=== PATIENT | male | born 1960 | race Caucasian/White ===

== ENCOUNTER 2019-02-22 10:23 | Emergency (ER) | payer BC ==
[2019-02-22] MEDS ORDERED: Aspirin 81 MG Tab.Chew PO ONE (11:02)
[2019-02-22] MEDS ORDERED: Nitroglycerin 0.4 MG Tab.SL SL ONE (11:02)
[2019-02-22] MEDS ORDERED: Sodium Chloride 0.9% 10 ML Syringe FLUSH PRN (11:02)
[2019-02-22 11:18] VITALS: BP 142/104
[2019-02-22] MEDS ORDERED: Nitroglycerin 2% Oint 1 GM UD Packet TOP STA (11:25)
--- NOTE | 2019-02-22 11:36 | EDM.PDOC ---
<Red Guardado - Last Filed: 02/22/19 11:24> ED HPI GENERAL MEDICAL PROBLEM - General Chief Complaint: Chest Pain Stated Complaint: CHEST PAIN AND ARM PAIN Time Seen by Provider: 02/22/19 10:47 Source of Information: Reports: Patient History Limitations: Reports: No Limitations - History of Present Illness INITIAL COMMENTS - FREE TEXT/NARRATIVE: Logan Guardado is a 58 year old male who presents to the ED for chest pain for the last day. 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 The pain starts in his chest and eventually begins to radiate into the back of both of his arms. He states that the pain eventually subsides roughly after about 40 minutes. He describes the pain as being hit with a sledgehammer right in the chest. He was able to sleep last night but he believes it was very restless because his covers were messed up. He then again felt the same exact pain this morning after leaving his brothers when he got out of his chicken picker. He did have a lower back surgery 5 months ago and he is still on 20lb weight restrictions. He states that he has been recently starting to become more active lately. He does also have an extensive family hx of heart disease with his sister having 2 stent placements and his niece also having 2 MIs. He is currently on Losartan and Metoprolol for his BP, he states that he forgot to take one of his medications but he's not sure which one. He thinks he took both doses of his Metoprolol and forgot the Losartan. Left Chest Pain Score (Numeric/FACES): 2 - Related Data Allergies Allergy/AdvReac Type Severity Reaction Status Date / Time codeine Allergy Cannot Verified 05/10/16 13:10 Remember Home Meds: Home Meds Aspirin 81 mg PO DAILY 04/05/16 [History] Losartan [Cozaar] 100 mg PO DAILY 04/05/16 [History] Metoprolol Tartrate 50 mg PO BID 04/05/16 [History] Nabumetone 500 mg PO Q12HR PRN 04/05/16 [History] Pravastatin Sodium 40 mg PO DAILY 04/05/16 [History] Calcium Polycarbophil [Fiber Therapy] 1 tab PO DAILY 05/11/16 [History] Multivitamin [One Daily Multivitamin] 1 tab PO DAILY 05/11/16 [History] Past Medical History HEENT History: Reports: Impaired Vision Other HEENT History: wears glasses Cardiovascular History: Reports: High Cholesterol, Hypertension Other Respiratory History: Severe Snoring Gastrointestinal History: Reports: Other (See Below) Other Gastrointestinal History: blood per rectum - ^ LFT's Musculoskeletal History: Reports: Back Pain, Chronic, Fracture, Osteoarthritis Other Musculoskeletal History: lumbar spine pain, chronic neck pain Other Neuro History: Shooting pain down Rt. Leg - Infectious Disease History Infectious Disease History: Reports: Hepatitis C - Past Surgical History Musculoskeletal Surgical History: Reports: Other (See Below) Social & Family History - Tobacco Use Smoking Status *Q: Never Smoker - Caffeine Use Caffeine Use: Reports: Coffee - Recreational Drug Use Recreational Drug Use: No ED ROS GENERAL - Review of Systems Constitutional: Reports: No Symptoms Respiratory: Reports: No Symptoms Cardiovascular: Reports: Chest Pain, Blood Pressure Problem, Dyspnea on Exertion. Denies: Lightheadedness, Syncope GI/Abdominal: Reports: No Symptoms Musculoskeletal: Reports: Arm Pain Skin: Reports: No Symptoms ED EXAM, GENERAL - Physical Exam Exam Limited By: No Limitations General Appearance: Alert, WD/WN, No Apparent Distress Eye Exam: Bilateral Eye: Normal Inspection Respiratory/Chest: No Respiratory Distress, Lungs Clear, Normal Breath Sounds, No Accessory Muscle Use, Chest Non-Tender. No: Wheezing, Pleural Rub Cardiovascular: Normal Peripheral Pulses, Regular Rate, Rhythm, No Edema, No Gallop, No JVD, No Murmur, No Rub. No: Diastolic Murmur, Systolic Murmur, Friction Rub GI/Abdominal: Normal Bowel Sounds, Soft, Non-Tender, No Organomegaly, No Distention, No Abnormal Bruit, No Mass Extremities: Normal Inspection, Normal Range of Motion, Non-Tender, Normal Capillary Refill, No Pedal Edema Psychiatric: Normal Affect, Normal Mood Skin Exam: Warm, Dry, Intact, Normal Color, No Rash Course - Vital Signs Last Recorded V/S: Last Vital Signs Temp 97.7 F 02/22/19 10:45 Pulse 55 L 02/22/19 11:17 Resp 18 02/22/19 10:45 BP 142/104 H 02/22/19 11:17 Pulse Ox 99 02/22/19 10:45 - Orders/Labs/Meds Orders: Active Orders 24 hr Category Date Time Status EKG 12 Lead [EKG Documentation Completion] [] STAT Care 02/22/19 11:02 Active Peripheral IV Care [RC] . DIRECTED Care 02/22/19 11:02 Active Sodium Chloride 0.9% [Saline Flush] Med 02/22/19 11:02 Active 10 ml FLUSH ASDIRECTED PRN Peripheral IV Insertion Adult [OM.PC] Stat Oth 02/22/19 11:02 Ordered Medication Orders Sodium Chloride (Saline Flush) 10 ml FLUSH ASDIRECTED PRN PRN Reason: Keep Vein Open Last Admin: 02/22/19 11:41 Dose: 10 ml Labs: Laboratory Tests 02/22/19 02/22/19 02/22/19 Range/Units 11:15 11:15 13:33 WBC 5.43 (4.23-9.07) K/mm3 RBC 5.55 (4.63-6.08) M/mm3 Hgb 15.6 (13.7-17.5) gm/L Hct 46.4 (40.1-51.0) % MCV 83.6 (79.0-92.2) fl MCH 28.1 (25.7-32.2) pg MCHC 33.6 (32.2-35.5) g/dl RDW Std Deviation 45.1 H (35.1-43.9) fL Plt Count 142 L (163-337) K/mm3 MPV 11.6 (9.4-12.3) fl Neut % (Auto) 57.3 (34.0-67.9) % Lymph % (Auto) 30.2 (21.8-53.1) % [place] % (Auto) 8.8 (5.3-12.2) % Eos % (Auto) 3.5 (0.8-7.0) Baso % (Auto) 0.2 (0.1-1.2) % Neut # (Auto) 3.11 (1.78-5.38) K/mm3 Lymph # (Auto) 1.64 (1.32-3.57) K/mm3 [place] # (Auto) 0.48 (0.30-0.82) K/mm3 Eos # (Auto) 0.19 (0.04-0.54) K/mm3 Baso # (Auto) 0.01 (0.01-0.08) K/mm3 Sodium 143 (136-145) mEq/L Potassium 4.2 (3.5-5.1) mEq/L Chloride 107 (98-107) mEq/L Carbon Dioxide 28 (21-32) mEq/L Anion Gap 12.2 (5-15) BUN 19 H (7-18) mg/dL Creatinine 0.9 (0.7-1.3) mg/dL Est Cr Clr Drug Dosing 94.63 mL/min Estimated GFR (MDRD) > 60 (>60) mL/min BUN/Creatinine Ratio 21.1 H (14-18) Glucose 94 (74-106) mg/dL Calcium 9.6 (8.5-10.1) mg/dL Total Bilirubin 0.6 (0.2-1.0) mg/dL AST 24 (15-37) U/L ALT 33 (16-63) U/L Alkaline Phosphatase 58 (46-116) U/L Troponin I < 0.017 < 0.017 (0.00-0.056) ng/mL Total Protein 7.6 (6.4-8.2) g/dl Albumin 4.2 (3.4-5.0) g/dl Globulin 3.4 gm/dL Albumin/Globulin Ratio 1.2 (1-2) Meds: Medications Generic Name Dose Route Start Last Admin Trade Name Germania PRN Reason Stop Dose Admin Sodium Chloride 10 ml 02/22/19 11:02 02/22/19 11:41 Saline Flush FLUSH 10 ml ASDIRECTED PRN Administration Keep Vein Open Discontinued Medications Generic Name Dose Route Start Last Admin Trade Name Germania PRN Reason Stop Dose Admin Aspirin 324 mg 02/22/19 11:02 02/22/19 11:09 Aspirin PO 02/22/19 11:03 324 mg ONETIME ONE Administration Nitroglycerin 0.4 mg 02/22/19 11:02 02/22/19 11:14 Nitrostat SL 02/22/19 11:03 0.4 mg ONETIME ONE Administration Nitroglycerin 1 gm 02/22/19 11:25 02/22/19 11:40 Nitro-Bid 2% TOP 02/22/19 11:26 1 gm STAT STA Administration Departure - Departure Disposition: Home, Self-Care 01 Clinical Impression: Atypical chest pain Instructions: Nonspecific Chest Pain, [id number] Referrals: Lety Taylor PA-C [Primary Care Provider] - Forms: ED Department Discharge Additional Instructions: Rest, no work recommended until you are medically cleared from your exercise stress test, continue aspirin, blood pressure medications as previously prescribed. You're scheduled for cardiac exercise stress test for Monday , 8:00. Arrive at least 15 minutes early for that to get appropriately registered. Follow-up with your regular clinic provider one or 2 days later for results. Return to ED as needed if symptoms worsening in any way. - My Orders Last 24 Hours: My Active Orders 02/22/19 11:02 EKG 12 Lead [EKG Documentation Completion] [RC] STAT Peripheral IV Care [RC] . DIRECTED Sodium Chloride 0.9% [Saline Flush] 10 ml FLUSH ASDIRECTED PRN Peripheral IV Insertion Adult [OM.PC] Stat - Assessment/Plan Last 24 Hours: My Active Orders 02/22/19 11:02 EKG 12 Lead [EKG Documentation Completion] [RC] STAT Peripheral IV Care [RC] . DIRECTED Sodium Chloride 0.9% [Saline Flush] 10 ml FLUSH ASDIRECTED PRN Peripheral IV Insertion Adult [OM.PC] Stat <TacoChencho L - Last Filed: 02/22/19 15:39> ED ROS GENERAL - Review of Systems Review Of Systems: See Below ED EXAM, GENERAL - Physical Exam Exam: See Below Course - Re-Assessments/Exams Free Text/Narrative Re-Assessment/Exam: 02/22/19 15:12 Initial hx and exam was done by PAM[employer] student. I have also examined patient. Initial troponin was normal, 3 hour troponin normal, chest x-ray normal, other labs also all relatively normal. He's been in sinus rhythm while here in the ED, no further chest discomfort. He has been scheduled for cardiac stress test this coming Monday 3 days from now. He and his are comfortable with that plan. Discharge instructions as documented. Departure - Departure Time of Disposition: 14:52
--- NOTE | 2019-02-22 12:12 | CR ---
Chest: Portable view of the chest was obtained. Comparison: Prior chest x-ray of 08/09/18. Heart size at the upper limits normal. Lungs are clear with no acute parenchymal change. Slight tortuosity of the thoracic aorta is seen. Bony structures are grossly intact. Impression: 1. Findings as noted above. Nothing acute is appreciated. Diagnostic code #2
== END 2019-02-22 15:15 | disposition home or self-care (01) ==
LOC: JD.ED 10:23
DX: R07.89 Other chest pain (principal); I10 Essential (primary) hypertension; Z88.5 Allergy status to narcotic agent; Z79.82 Long term (current) use of aspirin; Z79.899 Other long term (current) drug therapy
CPT/HCPCS: 36415; 71045; 80053; 84484; 85025; 93005; 99285; A9270; 93010; 99284

== ENCOUNTER 2021-01-09 13:01 | Emergency (ER) | payer SELFPAY ==
[2021-01-09] MEDS ORDERED: Sodium Chloride 0.9% 10 ML Syringe FLUSH PRN (13:33)
[2021-01-09] MEDS ORDERED: HYDROmorphone 0.5 MG/0.5 ML Syringe IVPUSH ONE (13:35)
--- NOTE | 2021-01-09 14:04 | EDM.PDOC ---
ED HPI GENERAL MEDICAL PROBLEM - General Chief Complaint: Abdominal Pain Stated Complaint: ABDOMINAL AND BACK PAIN Time Seen by Provider: 01/09/21 13:22 Source of Information: Reports: Patient, RN Notes Reviewed - History of Present Illness INITIAL COMMENTS - FREE TEXT/NARRATIVE: 60 yr old male with onset of L back pain that started last evening. Has continued during the night and into today. Pain does radiate to his L flank, L groin and L lower abd. Mild nausea at times, no vomiting. No current voiding sx. No chest pain, dyspnea, fever or chills. Hx of prior diverticulitis. Treatments COOKIE PADDER: Reports: Other (see below) Other Treatments COOKIE PADDER: none today Left Lower Abdomen Pain Score (Numeric/FACES): 3 Left Lower Back Pain Score (Numeric/FACES): 9 - Related Data Allergies Allergy/AdvReac Type Severity Reaction Status Date / Time codeine Allergy Cannot Verified 05/10/16 13:10 Remember Home Meds: Home Meds Aspirin 81 mg PO DAILY 04/05/16 [History] Losartan [Cozaar] 100 mg PO DAILY 04/05/16 [History] Metoprolol Tartrate 50 mg PO BID 04/05/16 [History] Nabumetone 500 mg PO Q12HR PRN 04/05/16 [History] Pravastatin Sodium 40 mg PO DAILY 04/05/16 [History] Calcium Polycarbophil [Fiber Therapy] 1 tab PO DAILY 05/11/16 [History] Multivitamin [One Daily Multivitamin] 1 tab PO DAILY 05/11/16 [History] Acetaminophen/oxyCODONE [Percocet 325-5 MG] 1 each PO Q6HR PRN #14 tab 01/09/21 [Rx] predniSONE [Prednisone] 50 mg PO DAILY #5 tablet 01/09/21 [Rx] Past Medical History HEENT History: Reports: Impaired Vision Other HEENT History: wears glasses Cardiovascular History: Reports: High Cholesterol, Hypertension Other Respiratory History: Severe Snoring Gastrointestinal History: Reports: Other (See Below) Other Gastrointestinal History: blood per rectum - ^ LFT's Musculoskeletal History: Reports: Back Pain, Chronic, Fracture, Osteoarthritis Other Musculoskeletal History: lumbar spine pain, chronic neck pain Other Neuro History: Shooting pain down Rt. Leg - Infectious Disease History Infectious Disease History: Reports: Hepatitis C Other Infectious Disease History: clear of Hep c since 2016 - Past Surgical History Musculoskeletal Surgical History: Reports: Other (See Below) Other Musculoskeletal Surgeries/Procedures:: ankle fracture with surgery; had surgery to neck and 2 back surgeries Social & Family History - Tobacco Use Tobacco Use Status *Q: Never Tobacco User Second Hand Smoke Exposure: No - Caffeine Use Caffeine Use: Reports: Coffee, Energy Drinks - Recreational Drug Use Drug Use in Last 12 Months: Yes Recreational Drug Type: Reports: Marijuana/Hashish ED ROS GENERAL - Review of Systems Review Of Systems: See Below Constitutional: Denies: Fever, Chills HEENT: Reports: No Symptoms Respiratory: Denies: Shortness of Breath, Pleuritic Chest Pain, Cough Cardiovascular: Denies: Chest Pain GI/Abdominal: Reports: Abdominal Pain, Nausea. Denies: Diarrhea, Vomiting : Reports: No Symptoms Musculoskeletal: Reports: Back Pain Skin: Reports: No Symptoms Neurological: Reports: No Symptoms ED EXAM, NEURO - Physical Exam Exam: See Below General Appearance: Alert, Moderate Distress Head Exam: Atraumatic Neck: Supple Respiratory/Chest: No Respiratory Distress, Lungs Clear, Normal Breath Sounds Cardiovascular: Regular Rate, Rhythm GI/Abdominal: Soft, Tender (mild tenderness L flank and l lower abd, R abd soft and nontender) Neurological: Alert, Normal Mood/Affect, No Motor/Sensory Deficits, Oriented x 3 Extremities: Normal Inspection, Normal Range of Motion Skin Exam: Warm, Dry, Normal Color Course - Vital Signs Last Recorded V/S: Last Vital Signs Temp 97.9 F 01/09/21 13:20 Pulse 60 01/09/21 15:55 Resp 16 01/09/21 15:55 BP 134/80 01/09/21 15:55 Pulse Ox 98 01/09/21 15:55 - Orders/Labs/Meds Orders: Active Orders 24 hr Category Date Time Status Abdomen Pelvis wo Cont [CT] Stat Exams 01/09/21 13:36 Taken Peripheral IV Insertion Adult [OM.PC] Stat Oth 01/09/21 13:34 Ordered Labs: Laboratory Tests 01/09/21 01/09/21 01/09/21 Range/Units 13:44 13:44 13:44 WBC 5.10 (4.23-9.07) K/mm3 RBC 4.94 (4.63-6.08) M/mm3 Hgb 15.3 (13.7-17.5) gm/dl Hct 44.6 (40.1-51.0) % MCV 90.3 (79.0-92.2) fl MCH 31.0 (25.7-32.2) pg MCHC 34.3 (32.2-35.5) g/dl RDW Std Deviation 42.6 (35.1-43.9) fL Plt Count 143 L (163-337) K/mm3 MPV 11.3 (9.4-12.3) fl Neut % (Auto) 63.7 (34.0-67.9) % Lymph % (Auto) 24.5 (21.8-53.1) % [place] % (Auto) 9.8 (5.3-12.2) % Eos % (Auto) 1.8 (0.8-7.0) Baso % (Auto) 0.2 (0.1-1.2) % Neut # (Auto) 3.25 (1.78-5.38) K/mm3 Lymph # (Auto) 1.25 L (1.32-3.57) K/mm3 [place] # (Auto) 0.50 (0.30-0.82) K/mm3 Eos # (Auto) 0.09 (0.04-0.54) K/mm3 Baso # (Auto) 0.01 (0.01-0.08) K/mm3 Sodium 144 (136-145) mEq/L Potassium 4.0 (3.5-5.1) mEq/L Chloride 106 (98-107) mEq/L Carbon Dioxide 26 (21-32) mEq/L Anion Gap 16.0 H (5-15) BUN 17 (7-18) mg/dL Creatinine 0.9 (0.7-1.3) mg/dL Est Cr Clr Drug Dosing 86.56 mL/min Estimated GFR (MDRD) > 60 (>60) mL/min BUN/Creatinine Ratio 18.9 H (14-18) Glucose 79 (74-106) mg/dL Calcium 9.4 (8.5-10.1) mg/dL Total Bilirubin 0.5 (0.2-1.0) mg/dL AST 22 (15-37) U/L ALT 35 (16-63) U/L Alkaline Phosphatase 51 (46-116) U/L C-Reactive Protein <0.2 (<1.0) mg/dL Total Protein 7.2 (6.4-8.2) g/dl Albumin 4.1 (3.4-5.0) g/dl Globulin 3.1 gm/dL Albumin/Globulin Ratio 1.3 (1-2) Urine Color (Yellow) Urine Appearance (Clear) Urine pH (5.0-8.0) Ur Specific [place] (1.005-1.030) Urine Protein (Negative) Urine Glucose (UA) (Negative) Urine Ketones (Negative) Urine Occult Blood (Negative) Urine Nitrite (Negative) Urine Bilirubin (Negative) Urine Urobilinogen (0.2-1.0) Ur Leukocyte Esterase (Negative) Urine RBC (0-5) /hpf Urine WBC (0-5) /hpf Ur Epithelial Cells (0-5) /hpf Urine Bacteria (FEW) /hpf Urine Mucus (FEW) /hpf 01/09/21 Range/Units 13:54 WBC (4.23-9.07) K/mm3 RBC (4.63-6.08) M/mm3 Hgb (13.7-17.5) gm/dl Hct (40.1-51.0) % MCV (79.0-92.2) fl MCH (25.7-32.2) pg MCHC (32.2-35.5) g/dl RDW Std Deviation (35.1-43.9) fL Plt Count (163-337) K/mm3 MPV (9.4-12.3) fl Neut % (Auto) (34.0-67.9) % Lymph % (Auto) (21.8-53.1) % [place] % (Auto) (5.3-12.2) % Eos % (Auto) (0.8-7.0) Baso % (Auto) (0.1-1.2) % Neut # (Auto) (1.78-5.38) K/mm3 Lymph # (Auto) (1.32-3.57) K/mm3 [place] # (Auto) (0.30-0.82) K/mm3 Eos # (Auto) (0.04-0.54) K/mm3 Baso # (Auto) (0.01-0.08) K/mm3 Sodium (136-145) mEq/L Potassium (3.5-5.1) mEq/L Chloride (98-107) mEq/L Carbon Dioxide (21-32) mEq/L Anion Gap (5-15) BUN (7-18) mg/dL Creatinine (0.7-1.3) mg/dL Est Cr Clr Drug Dosing mL/min Estimated GFR (MDRD) (>60) mL/min BUN/Creatinine Ratio (14-18) Glucose (74-106) mg/dL Calcium (8.5-10.1) mg/dL Total Bilirubin (0.2-1.0) mg/dL AST (15-37) U/L ALT (16-63) U/L Alkaline Phosphatase (46-116) U/L C-Reactive Protein (<1.0) mg/dL Total Protein (6.4-8.2) g/dl Albumin (3.4-5.0) g/dl Globulin gm/dL Albumin/Globulin Ratio (1-2) Urine Color Yellow (Yellow) Urine Appearance Slt cloudy H (Clear) Urine pH 7.0 (5.0-8.0) Ur Specific [place] > or = 1.030 (1.005-1.030) Urine Protein 2+ H (Negative) Urine Glucose (UA) Negative (Negative) Urine Ketones Negative (Negative) Urine Occult Blood Negative (Negative) Urine Nitrite Negative (Negative) Urine Bilirubin Negative (Negative) Urine Urobilinogen 0.2 (0.2-1.0) Ur Leukocyte Esterase Negative (Negative) Urine RBC 0-5 (0-5) /hpf Urine WBC 0-5 (0-5) /hpf Ur Epithelial Cells 0-5 (0-5) /hpf Urine Bacteria Few (FEW) /hpf Urine Mucus Few (FEW) /hpf Meds: Medications Discontinued Medications Generic Name Dose Route Start Last Admin Trade Name Freq PRN Reason Stop Dose Admin Hydromorphone HCl 0.5 mg 01/09/21 13:35 01/09/21 13:54 Dilaudid IVPUSH 01/09/21 13:36 0.5 mg ONETIME ONE Administration Methylprednisolone Sodium Succinate 125 mg 01/09/21 15:11 01/09/21 15:22 Solu-Medrol IVPUSH 01/09/21 15:12 125 mg ONETIME ONE Administration Sodium Chloride 10 ml 01/09/21 13:33 01/09/21 13:54 Saline Flush FLUSH 10 ml ASDIRECTED PRN Administration Keep Vein Open Departure - Departure Time of Disposition: 15:12 Disposition: Home, Self-Care 01 Condition: Fair Clinical Impression: Back pain with left-sided radiculopathy - Discharge Information Prescriptions: Acetaminophen/oxyCODONE [Percocet 325-5 MG] 1 each PO Q6HR PRN #14 tab PRN Reason: Pain predniSONE [Prednisone] 50 mg PO DAILY #5 tablet Instructions: Pinched Nerve, Radicular Pain Referrals: Lety Taylor PA-C [Primary Care Provider] - Forms: ED Department Discharge Additional Instructions: Rest back, no heavy lifting this next week. Prednisone 50 mg daily for the next 5 days with your first dose tomorrow morning. Percocet 1/2 tab or 1 full tab q 6 to 8 hr as needed for severe pain. Prescriptions have been sent to [facility] at the [facility]. It is expected that your symptoms should get better over the next 3 to 5 days. Follow up Fozia at the clinic in about 4 to 5 days for recheck. Return to ED as needed if symptoms worsening in any way. Sepsis Event Note (ED) - Evaluation Sepsis Screening Result: No Definite Risk - My Orders Last 24 Hours: My Active Orders 01/09/21 13:34 Peripheral IV Insertion Adult [OM.PC] Stat 01/09/21 13:36 Abdomen Pelvis wo Cont [CT] Stat - Assessment/Plan Last 24 Hours: My Active Orders 01/09/21 13:34 Peripheral IV Insertion Adult [OM.PC] Stat 01/09/21 13:36 Abdomen Pelvis wo Cont [CT] Stat
[2021-01-09] MEDS ORDERED: methylPREDNISolone Sodium Succinate 125 MG/2 ML SDV IVPUSH ONE (15:11)
[2021-01-09 16:12] VITALS: BP 134/80; PULSE 60
--- NOTE | 2021-01-10 11:37 | CT ---
CT abdomen and pelvis Technique: Multiple axial sections were obtained from above the dome of the diaphragm inferiorly through the pubic symphysis. Intravenous contrast and oral contrast was not given. Reconstructed coronal and sagittal images were obtained. Comparison: Prior CT abdomen and pelvis study of 04/23/20. Findings: Visualized lung bases shows nothing acute. Noncontrast appearance of the liver shows no focal abnormality. Mild coronary artery calcification is seen. Spleen appears normal. Adrenal glands show no nodule. Gallbladder contains no calcified gallstones. Kidneys show no abnormal calcifications. No ureteral stone or ureteral dilatation is seen. Pancreas appears within normal limits. Abdominal aorta shows atherosclerotic calcification with no aneurysm. No retroperitoneal adenopathy or mesenteric abnormalities are appreciated. No pelvic mass is seen. Appendix is seen which is normal in size. Diverticuli are seen within the lower descending colon and sigmoid colon with no inflammatory change of diverticulitis. Prior diverticulitis has resolved. Bone window settings were reviewed which show previous surgery at L5-S1 which is stable from prior exam. No acute osseous finding is otherwise seen. Impression: 1. Diverticuli without diverticulitis. 2. No ureteral calculi or ureteral dilatation is seen. 3. Other findings as noted above which are stable from prior CT study of the abdomen and pelvis. Diagnostic code #2 I agree with preliminary report from [facility], finalized on 01/09/21, 3:28 PM [employer]
== END 2021-01-09 15:55 | disposition home or self-care (01) ==
LOC: JD.ED 13:01
DX: M54.16 Radiculopathy, lumbar region (principal); E78.00 Pure hypercholesterolemia, unspecified; I10 Essential (primary) hypertension; M19.90 Unspecified osteoarthritis, unspecified site; Z88.5 Allergy status to narcotic agent; Z79.82 Long term (current) use of aspirin; Z79.899 Other long term (current) drug therapy
CPT/HCPCS: 36415; 74176; 80053; 81001; 85025; 86140; 96374; 96375; 99284; J1170; J2930

== ENCOUNTER 2022-01-14 10:10 | Emergency (ER) | payer BC ==
[2022-01-14] MEDS ORDERED: Sodium Chloride 0.9% 10 ML Syringe FLUSH PRN (10:21)
[2022-01-14] MEDS ORDERED: Aspirin 81 MG Tab.Chew PO ONE (10:21)
[2022-01-14 10:22] VITALS: BP 154/94; PULSE 63
[2022-01-14] MEDS ORDERED: Sodium Chloride 0.9% 500 ML IV ONE (11:40)
[2022-01-14] MEDS ORDERED: Iopamidol 755 Mg/ML 100 ML Bottle IVPUSH ONE (11:41)
[2022-01-14] MEDS ORDERED: Sodium Chloride 0.9% 10 ML Syringe FLUSH ONE (11:41)
[2022-01-14] MEDS ORDERED: Sodium Chloride 0.9% 100 ML IV SCH (11:45)
[2022-01-14] MEDS ORDERED: Heparin Sodium 5,000 Units/ML Vial IVPUSH ONE (13:26)
[2022-01-14] MEDS ORDERED: Heparin Sodium/D5W 25,000 UNITS/500 ML BAG IV SCH (13:27)
[2022-01-14 14:00] LABS: CORONAVIRUS COVID-19 NAA NEGATIVE (NEGATIVE)
== END 2022-01-14 16:42 ==
LOC: JD.ED 10:10
DX: I21.4 Non-ST elevation (NSTEMI) myocardial infarction (principal); E78.00 Pure hypercholesterolemia, unspecified; I10 Essential (primary) hypertension; Z88.5 Allergy status to narcotic agent; Z79.82 Long term (current) use of aspirin; Z79.02 Long term (current) use of antithrombotics/antiplatelets; Z79.899 Other long term (current) drug therapy; Z20.822 Contact with and (suspected) exposure to COVID-19
CPT/HCPCS: 0240U; 36415; 71045; 71275; 80053; 83735; 83880; 84484; 85025; 85379; 85610; 85730; 93005; 96365; 96366; 99285; J1644; J7030; Q9967; 93010

== ENCOUNTER 2022-02-12 13:41 | Emergency (ER) | payer BC ==
[2022-02-12] MEDS ORDERED: Sodium Chloride 0.9% 10 ML Syringe FLUSH PRN ×2 (14:08→15:44)
[2022-02-12] MEDS ORDERED: Sodium Chloride 0.9% 500 ML IV ONE (14:10)
[2022-02-12] MEDS ORDERED: Sodium Chloride 0.9% 1,000 ML IV SCH (14:15)
[2022-02-12 14:53] LABS: CORONAVIRUS COVID-19 NAA NEGATIVE (NEGATIVE)
[2022-02-12 15:07] VITALS: BP 110/77; PULSE 76
[2022-02-12] MEDS ORDERED: Iopamidol 612 MG/ML 100 ML Bottle IVPUSH ONE (15:44)
== END 2022-02-12 17:55 | disposition home or self-care (01) ==
LOC: JD.ED 13:41
DX: K52.9 Noninfective gastroenteritis and colitis, unspecified (principal); I25.10 Atherosclerotic heart disease of native coronary artery without angina pectoris; E78.00 Pure hypercholesterolemia, unspecified; I10 Essential (primary) hypertension; M19.90 Unspecified osteoarthritis, unspecified site; Z95.5 Presence of coronary angioplasty implant and graft; Z88.5 Allergy status to narcotic agent; Z79.82 Long term (current) use of aspirin; Z79.899 Other long term (current) drug therapy; Z86.16 Personal history of COVID-19; Z20.822 Contact with and (suspected) exposure to COVID-19
CPT/HCPCS: 0241U; 36415; 71045; 74177; 80053; 82272; 83605; 83690; 84484; 85007; 85027; 86140; 87493; 93005; 99285; J7030; Q9967; 93010

== ENCOUNTER 2022-08-10 14:23 | Emergency (ER) | payer BC, OTHER ==
[2022-08-10 15:06] VITALS: BP 125/90; PULSE 61
[2022-08-10] MEDS ORDERED: Ketorolac 60 MG/2 ML SDV IM ONE (15:26)
[2022-08-10] MEDS ORDERED: Ketorolac 30 MG/ML SDV IM ONE (15:46)
== END 2022-08-10 16:20 | disposition home or self-care (01) ==
LOC: JD.ED 14:23
DX: S90.31XA Contusion of right foot, initial encounter (principal); E78.00 Pure hypercholesterolemia, unspecified; I10 Essential (primary) hypertension; I25.2 Old myocardial infarction; Z86.16 Personal history of COVID-19; Z88.5 Allergy status to narcotic agent; Z88.8 Allergy status to other drugs, medicaments and biological substances; Z79.899 Other long term (current) drug therapy; Z79.82 Long term (current) use of aspirin; W20.8XXA Other cause of strike by thrown, projected or falling object, initial encounter
CPT/HCPCS: 73630; 96372; 99283; J1885